=== PATIENT | male | born 1975 | race Caucasian/White ===

== ENCOUNTER 2023-11-21 10:13 | Emergency (ER) | payer MEDICAID ==
[~2023-11-21] VITALS: Ht 170.2 cm; Wt 68.0 kg
[2023-11-21 10:20] VITALS: BP 143/82; PULSE 72; RESP 18; TEMP 98.1
[2023-11-21] MEDS: KETOROLAC TROMETHAMINE 30 MG/ML VIAL IM ONE (10:51)
[2023-11-21] MEDS ORDERED: AMOX250C4 PO (10:57)
== END 2023-11-21 11:07 | disposition home or self-care (01) ==
LOC: EMS 10:13
DX: K02.9 Dental caries, unspecified (principal)
CPT/HCPCS: 99283; 96372; J1885